=== PATIENT | female | born 2000 | race Asian ===

== ENCOUNTER 2021-10-31 12:48 | Emergency (ER) | payer OTHER, SELFPAY ==
[2021-10-31 12:51] VITALS: BP 135/76; PULSE 74; RESP 16; TEMP 36.9; O2SAT 97
--- NOTE | 2021-10-31 12:58 | ED.GENADUL_ITS ---
Discharge Plan Disposition Patient Disposition: HOME Condition: Stable Discharge Details Clinical Impression: Fracture of distal end of left fibula Primary Care Provider: Elena,Local ED Provider: Magnolia Toro Home Meds and New Rx's Prescriptions: New oxycodone 5 mg tablet 5 mg PO Q6H PRN (Reason: pain) Qty: 5 0RF Discharge Instructions Instructions: Leg Fracture (ED) Additional Instructions: Rest, ice, and elevate the affected area as much as possible. Keep the walking boot in place and use the crutches for ambulation. Alternate tylenol and motrin as needed and directed for pain. Take the oxycodone for pain not relieved with Tylenol or ibuprofen. Call a local orthopedist near home tomorrow to schedule a follow-up appointment for reevaluation within the next week. Return immediately to the emergency department if you develop any worsening or new concerning symptoms. Discharge Data Discharge Date/Time-TO BE ENTERED AT DEPARTURE: 10/31/21 16:01 Discharge Physician: Magnolia Toro Medical Decision Making 21yo F who presents with left ankle pain after twisting her ankle [place]. She has tenderness and edema to her left anterior lateral ankle but no obvious deformity. She has neurovascular intact. No other injuries. We will give a dose of ibuprofen refer for x-rays. Xray notes: IMPRESSION: Oblique fracture of the distal fibula with extension to the lateral mortise without significant widening. Lateral soft tissue swelling. X-ray reviewed with Dr. Titus who recommends either a posterior splint or walking boot. Patient will defer walking boot. She was provided with crutches. She was given her x-rays to, x-ray report, oxycodone bottle to go and a prescription. Advised to call her local orthopedist tomorrow for follow-up this week. Instructed on the importance of RICE. Usual and customary return precautions given prior to discharge. Medical Records Medical records reviewed: Yes I reviewed the patient's medical records. Imaging Data Radiologic Study: Radiologist's impression: XR Left Ankle Exam date and time: 10/31/2021 1:09 PM Age: 21 years old Clinical indication: Injury or trauma; Other: Skiing; Blunt trauma; Ankle; Left TECHNIQUE: Imaging protocol: XR Left ankle. Views: 3 or more views. COMPARISON: No relevant prior studies available. FINDINGS: Bones/joints: Bony mineralization is within normal limits. There is an oblique fracture of the distal fibula with extension to the lateral mortise which is not significantly widened. There is no definite fracture of the distal tibia. Soft tissues: There is soft tissue swelling seen laterally. IMPRESSION: Oblique fracture of the distal fibula with extension to the lateral mortise without significant widening. Lateral soft tissue swelling. HPI General Mode of arrival: ambulatory . Date/Time Provider Initiated Documentation: 10/31/21 12:49 . Limitations to Documentation: no limitations . Information obtained by: patient . HPI Narrative: Patient is a 21-year-old female who presents to the ED with a complaint of left ankle pain after twisting her ankle and feeling pain in the proximal while skiing prior to arrival. Patient states she was skiing and hit a hard patch of snow and fell flat her ski did not pop off and she felt a crack and a pop in her left ankle with immediate pain. [place]. She has not taken anything for pain. She denies any head injury and states she was wearing a helmet. She denies any other injuries. She denies any pain in the remainder of her left lower extremity. Related Data Home Medications Medication Instructions Recorded Confirmed oxycodone 5 mg tablet 5 mg PO Q6H PRN #5 tab 10/31/21 Previous Rx's Medication Instructions Recorded oxycodone 5 mg tablet 5 mg PO Q6H PRN #5 tab 10/31/21 Allergies Allergy/AdvReac Type Severity Reaction Status Date / Time pollen extracts Allergy Unverified 10/31/21 12:57 General Stated Complaint: Orthopedic BLAYNE: 3 Review of Systems All systems reviewed & are unremarkable except as noted in HPI and below Constitutional Constitutional: Reports as per HPI, Denies chills and Denies fever(s) Eyes Eyes: Denies blurry vision ENT Ears, Nose, Mouth, and Throat: Denies dizziness, Denies sore throat and Denies throat swelling Cardiovascular Cardiovascular: Denies chest pain and Denies dyspnea Respiratory Respiratory: Denies cough and Denies dyspnea Gastrointestinal Gastrointestinal: Denies abdominal pain, Denies diarrhea and Denies vomiting Genitourinary Genitourinary: Denies hematuria and Denies dysuria Musculoskeletal Musculoskeletal: Denies back pain and Denies numbness Comments: L ankle pain Integumentary/Breasts Skin/Breast: Denies lesions and Denies rash Neurologic Neurologic: Denies dizziness, Denies localized weakness and Denies numbness Allergic/Immunologic Allergic/Immunologic: Denies throat swelling PFSH All Active Problems (Updated 10/31/21 @ 14:22 by Magnolia Toro DO) Fracture of distal end of left fibula (Acute) Social History Smoking/Tobacco Use Status: Never Smoking risk assessment performed?: Yes Alcohol Intake: current Alcohol Intake frequency: a few times a week Drug use: Never Substance use type: does not use Do you feel safe at home: Yes Do you feel safe in your relationship?: Yes Exam Const General: cooperative, healthy appearing and no acute distress Orientation: alert, awake and oriented x3 HENMT Head: normal to inspection Mouth: oral mucosae normal Eyes General: appearance normal, both eyes and all related structures Neck Neck: normal visual inspection Chest Chest: normal palpation of entire chest wall Resp Effort & Inspection: normal respiratory effort and able to speak in complete sentences Auscultation: clear to auscultation bilaterally Cardio Rate: regular rate Rhythm: regular rhythm GI Inspection: normal to inspection Palpation: soft, not firm, no guarding, not rigid and nontender Back/Spine/Pelvis Cervical Spine: No cervical spinal tenderness Thoracic/Lumbar Spine: No thoracic spinal tenderness and No lumbar spinal tenderness Skin General skin exam: no rashes or lesions noted Neuro General: patient alert, patient awake and patient oriented x3 Motor: muscle tone normal throughout Extrem Ankle/foot/toe images: 1. Moderate edema and tenderness palpation to left anterior ankle and anterior aspect of lateral malleolus. There is no obvious deformity. Other: No pain with range of motion of bilateral hips, bilateral knees, right ankle and foot. No left fifth metatarsal tenderness. No tenderness to palpation of the left proximal leg. Left DP/PT pulses intact. Psych Appearance: grossly normal Affect: normal affect Course Vital Signs Vital signs: Vital Signs Temperature 98.4 F 10/31/21 12:51 Pulse 74 10/31/21 12:51 Respiratory Rate 16 10/31/21 12:51 Blood Pressure 135/76 10/31/21 12:51 Pulse Oximetry 97 10/31/21 12:51 Temperature 98.4 F 10/31/21 12:51 Temperature Source Temporal Artery Scan 10/31/21 12:51 Pulse 74 10/31/21 12:51 Respiratory Rate 16 10/31/21 12:51 Blood Pressure 135/76 10/31/21 12:51 Pulse Oximetry 97 10/31/21 12:51 Oxygen Delivery Method Room Air 10/31/21 12:51 Oxygen Flow Rate 0 10/31/21 12:51 Pain Level 8 10/31/21 12:51
--- NOTE | 2021-10-31 13:00 | DI.RAD_ITS ---
Exam(s) XR ANKLE LT COMPLETE EXAM: XR ANKLE LT COMPLETE CLINICAL HISTORY: fall while skiing, r/o fx TECHNIQUE: 2D digital imaging was performed of the left ankle. Three images were obtained. AP, lat eral and oblique views were obtained. COMPARISON: No exams were available for comparison FINDINGS: BONES: There is an acute nondisplaced fracture of the distal left fibula. The fracture lies at the l evel of the ankle joint. No bony destructive lesion is seen. JOINTS:The ankle mortise is normally aligned. SOFT TISSUE: There is mild soft tissue swelling laterally. IMPRESSION: Nondisplaced oblique fracture of the distal fibula. DATA REPOSITORY: RADIATION DOSE DELIVERED:
[2021-10-31] MEDS: Ibuprofen 600 MG TAB PO (13:18)
--- NOTE | 2021-10-31 14:05 | DI.VRAD_ITS ---
PROCEDURE INFORMATION: Exam: XR Left Ankle Exam date and time: 10/31/2021 1:09 PM Age: 21 years old Clinical indication: Injury or trauma; Other: Skiing; Blunt trauma; Ankle; Left TECHNIQUE: Imaging protocol: XR Left ankle. Views: 3 or more views. COMPARISON: No relevant prior studies available. FINDINGS: Bones/joints: Bony mineralization is within normal limits. There is an oblique fracture of the distal fibula with extension to the lateral mortise which is not significantly widened. There is no definite fracture of the distal tibia. Soft tissues: There is soft tissue swelling seen laterally. IMPRESSION: Oblique fracture of the distal fibula with extension to the lateral mortise without significant widening. Lateral soft tissue swelling. Dictated and Authenticated by: Shante oG MD. Ordering:WEI Merida MD
[2021-10-31] MEDS: oxyCODONE 5 MG TAB PO (14:57)
[2021-10-31 15:12] VITALS: BP 141/83; PULSE 90; RESP 14; TEMP 39.7; O2SAT 96
== END 2021-10-31 16:01 | disposition home or self-care (01) ==
PROVIDERS: Emergency Provider Physician Assistant
DX: S82.492A Other fracture of shaft of left fibula, initial encounter for closed fracture (principal); X50.1XXA Overexertion from prolonged static or awkward postures, initial encounter
CPT/HCPCS: 29515; 81025; 99283; 73610